=== PATIENT | male | born 1960 | race Two or more races ===

== ENCOUNTER 2020-09-01 04:56 | Emergency (ER) | payer OTHER ==
[~2020-09-01] VITALS: Ht 165.1 cm; Wt 75.3 kg
[2020-09-01] MEDS ORDERED: PLAVIX75 MG PO (05:10)
[2020-09-01] MEDS ORDERED: ZESTRIL2.5 MG PO (05:11)
[2020-09-01] MEDS ORDERED: LIPITOR40 MG PO (05:11)
[2020-09-01] MEDS ORDERED: TOPROL XL25 M1 PO (05:11)
[2020-09-01] MEDS ORDERED: FORTAMET500 MG PO (05:11)
== END 2020-09-01 09:53 | disposition designated cancer center or children's hospital (05) ==
LOC: ER 04:56 → CPU-OBS 05:21 → ER 05:21
DX: I21.4 Non-ST elevation (NSTEMI) myocardial infarction (principal); I24.9 Acute ischemic heart disease, unspecified
CPT/HCPCS: G0378; G0379; 93005; 82805; 36600